=== PATIENT | female | born 1965 | race American Indian/Alaskan Native ===

== ENCOUNTER 2020-02-29 12:00 | Emergency (ER) | payer OTHER ==
--- NOTE | 2020-02-29 12:49 | Event Note ---
ED Screening Note ED Screening Note: Fall from ladder on Friday 4 ft felt crack was on ladder nausea no loc rx amitryp for migraines kevin for pain norvasc hx [id number] bulging disc- gets injections-- seeing chronic pain md swelling low cervical spine area This initial assessment/diagnostic orders/clinical plan/treatment(s) is/are subject to change based on patients health status, clinical progression and re- assessment by fellow clinical providers in the ED. Further treatment and workup at subsequent clinical providers discretion. Patient/guardian urged not to elope from the ED as their condition may be serious if not clinically assessed and managed. Initial orders include: ct head c/t spine
--- NOTE | 2020-02-29 14:51 | Cat Scan Report ---
NONENHANCED CT SCAN OF THE HEAD: INDICATION / CLINICAL INFORMATION: 54 years Female; MAIN. Fell down 4 feet TECHNIQUE: Routine CT head without contrast. All CT scans at this location are performed using CT dos e reduction for ALARA by means of automated exposure control. COMPARISON: None. FINDINGS: BRAIN / INTRACRANIAL CONTENTS: No intracranial sequela from the trauma. No scalp hematoma; no air-flu id level in the visualized portions of the paranasal sinuses. No acute hemorrhage, mass effect, midline shift, hydrocephalus, or acute, large territorial infarct. No chronic infarct or focal atrophy. Normal brain volume and ventricular/sulcal size for age. No sig nificant white matter abnormality. Ventricles and third ventricle are smaller in size. Optic nerve sh eath complex normal. Sella turcica is enlarged with normal sized pituitary gland. CRANIOCERVICAL JUNCTION: No significant abnormality. ORBITS: No significant abnormality of visualized orbits. SINUSES / MASTOIDS: No significant abnormality of the visualized paranasal sinuses or mastoid air lotus ls. ADDITIONAL FINDINGS: None. IMPRESSION: No intracranial sequela from the trauma Signer Name: Maeve Duenas MD Signed: 02/29/2020 2:47 PM Workstation Name: [id number]
--- NOTE | 2020-02-29 15:08 | Cat Scan Report ---
Exam: CT cervical spine History: fall 4 ft; Technique: Contiguous thin cut axial images obtained through the cervical spine. Sagittal and houser l reconstructions performed by the technologist. All CT scans at this location are performed using CT dose reduction for ALARA by means of automated exposure control. Findings: No priors. There is no evidence of fracture or traumatic subluxation. Vertebral bodies are normal in height and alignment. No vertebral compression fracture; no CT finding s to suggest soft tissue injury; prevertebral space is normal Focal small midline disc protrusion at C4-C5 disc level; neuroforamina are normal Bulging disc without lateralization at C5-C6 disc level Approximately 25 mm sized low attenuation lesion in the left lobe of the thyroid Impression: No signs of acute bony trauma to the cervical spine. 24 mm sized low attenuation lesion in the left lobe of the thyroid INCIDENTAL THYROID NODULE RECOMMENDATIONS Nonpalpable nodules detected on US or other anatomic imaging studies are termed incidentally discover ed nodules or incidentalomas. Nonpalpable nodules have the same risk of malignancy as palpable nodule s with the same size. Generally, only nodules >1 cm should be evaluated, since they have a greater po tential to be clinically significant cancers. (WILLIAM, 2009). In patients 35 years with an incidental thyroid nodule detected on CT, MRI, or extrathyroidal ultraso und, dedicated thyroid ultrasound is recommended if the nodule is 1.5 cm, has no suspicious imaging f eatures, and if the patient has normal life expectancy. Signer Name: Maeve Duenas MD Signed: 02/29/2020 3:04 PM Workstation Name: [id number]
--- NOTE | 2020-02-29 15:14 | Cat Scan Report ---
CT THORACIC SPINE WITHOUT CONTRAST INDICATION / CLINICAL INFORMATION: Trauma. Patient fell sustaining back injury. Mid back pain. TECHNIQUE: Axial CT images were obtained through the thoracic spine. Sagittal and coronal reformatted images wer e produced. All CT scans at this location are performed using CT dose reduction for ALARA by means of automated exposure control. COMPARISON: None available. FINDINGS: VERTEBRAE: No significant abnormality. There is no indication of thoracic vertebral body compression fracture or other bone injury. ALIGNMENT: Normal alignment is maintained throughout the thoracic region. DISC SPACES: Disc height is normally maintained throughout. FACET and COSTOVERTEBRAL JOINTS: No significant abnormality. CERVICOTHORACIC JUNCTION:No significant abnormality. SPINAL CANAL: Central spinal canal is generous in size throughout the thoracic spine. Level by level analysis: T1-T2:No abnormality. T2-T3:No abnormality. T3-T4:No abnormality. T4-T5:No abnormality. T5-T6:No abnormality. T6-T7:No abnormality. T7-T8:No abnormality. T8-T9:No abnormality. T9-T10: Small anterior osteophyte lateralizes towards the right. T10-T11:No abnormality. T11-T12:No abnormality. PARASPINAL SOFT TISSUES: No significant abnormality. Superior mediastinum and paraspinous soft tissue s have an unremarkable appearance. LUNGS: Visualized portions the lung are free from confluent infiltrate. No lung nodules are identifie d. There is no indication of pleural effusion. IMPRESSION: 1. No indication of fracture or significant degenerative change on CT thoracic spine without contrast . Signer Name: Sam Davis MD Signed: 02/29/2020 3:10 PM Workstation Name: [id number]
--- NOTE | 2020-02-29 15:21 | Emergency Department Report ---
ED Fall HPI - General Chief Complaint: Neck Pain/Injury Stated Complaint: FELL/NECK INJURY Time Seen by Provider: 02/29/20 12:49 Source: patient Mode of arrival: Ambulatory - History of Present Illness MD Complaint: fall - Related Data Allergies Allergy/AdvReac Type Severity Reaction Status Date / Time No Known Allergies Allergy Verified 02/29/20 12:38 ED Review of Systems ROS: Stated complaint: FELL/NECK INJURY Other details as noted in HPI Comment: All other systems reviewed and negative ED Past Medical Hx - Past Medical History Previous Medical History?: Yes Hx Hypertension: Yes Hx Headaches / Migraines: Yes - Surgical History Past Surgical History?: No - Family History Family history: no significant - Social History Smoking Status: Never Smoker Substance Use Type: None ED Physical Exam - General Limitations: No Limitations General appearance: alert, in no apparent distress - Head Head exam: Present: atraumatic, normocephalic - Eye Eye exam: Present: normal appearance - ENT ENT exam: Present: mucous membranes moist - Neck Neck exam: Present: normal inspection - Respiratory Respiratory exam: Present: normal lung sounds bilaterally. Absent: respiratory distress - Cardiovascular Cardiovascular Exam: Present: regular rate, normal rhythm. Absent: systolic murmur, diastolic murmur, rubs, gallop - GI/Abdominal GI/Abdominal exam: Present: soft, normal bowel sounds - Extremities Exam Extremities exam: Present: normal inspection - Back Exam Back exam: Present: normal inspection - Neurological Exam Neurological exam: Present: alert, oriented X3 - Psychiatric Psychiatric exam: Present: normal affect, normal mood - Skin Skin exam: Present: warm, dry, intact, normal color. Absent: rash ED Medical Decision Making - Radiology Data Radiology results: report reviewed, image reviewed Critical care attestation.: If time is entered above; I have spent that time in minutes in the direct care of this critically ill patient, excluding procedure time. ED Disposition Clinical Impression: Fall, Contusion Disposition: DC-01 TO HOME OR SELFCARE Is pt being admited?: No Does the pt Need Aspirin: No Condition: Stable Additional Instructions: WARM COMPRESSES/HEATING PAD MOTRIN OR TYLENOL FOR PAIN FOLLOW UP WITH PCP OR ORTHO MD REFERRAL BELOW Referrals: ROGERIO MANNING MD [Staff Physician] - 3-5 Days Time of Disposition: 15:22
== END 2020-02-29 15:31 | disposition home or self-care (01) ==
LOC: ED 12:00
DX: S10.93XA Contusion of unspecified part of neck, initial encounter (principal); I10 Essential (primary) hypertension; G43.909 Migraine, unspecified, not intractable, without status migrainosus; W18.30XA Fall on same level, unspecified, initial encounter; Y93.89 Activity, other specified; Y92.89 Other specified places as the place of occurrence of the external cause; Y99.8 Other external cause status
CPT/HCPCS: 70450; 72125; 72128; 99283